=== PATIENT | male | born 1985 | race Caucasian/White ===

== ENCOUNTER 2017-02-24 08:48 | Emergency (ER) | payer BC ==
[2017-02-24 09:05] VITALS: BP 122/78
--- NOTE | 2017-02-24 09:19 | EDM.PDOC ---
ED HPI GENERAL MEDICAL PROBLEM - General Chief Complaint: ENT Problem Stated Complaint: SINUS INFECTION Time Seen by Provider: 02/24/17 09:06 - History of Present Illness INITIAL COMMENTS - FREE TEXT/NARRATIVE: HISTORY AND PHYSICAL: History of present illness: The patient is a 31-year-old male with a history of non-Hodgkin's lymphoma which has been in remission since 2000 and thyroid cancer which is been in remission since 2013, both of which he has maintenance treatment at the [facility], and who presents with complaints of 4 days of sinus pressure sinus drainage of yellow and green mucous, postnasal drip scratchy sore throat and in her ear pressure/pain. He also describes a frontal headache with this. His highest fever has been 101 at home day or so ago and Tylenol treated that problem. He has had no chest pain shortness of breath but has had occasional dry cough. He has no nausea vomiting or diarrhea. Patient has no swollen glands in his neck no neck pain and no posterior head pain. Review of systems: As per history of present illness and below otherwise all systems reviewed and negative. Past medical history: As per history of present illness and as reviewed below otherwise noncontributory. Surgical history: As per history of present illness and as reviewed below otherwise noncontributory. Social history: No reported history of drug or alcohol abuse. Family history: As per history of present illness and as reviewed below otherwise noncontributory. Physical exam: General: Well-developed well-nourished man who is nasal quality to voice but is nontoxic appearing. Vital signs of the noted by me HEENT: Atraumatic, normocephalic, pupils reactive, negative for conjunctival pallor or scleral icterus, mucous membranes moist, throat clear, neck supple, nontender, trachea midline. There is no inflamed cervical adenopathy or nuchal rigidity, there is some mild maxillary sinus tenderness on palpation, TMs are normal bilaterally, nasal turbinates are slightly boggy close it is slightly clear dictated left greater than right. There is some shoddy old cervical nodes appreciated with patient states is not new Lungs: Clear to auscultation, breath sounds equal bilaterally, chest nontender. Heart: S1S2, regular, negative for clicks, rubs, or JVD. Abdomen: Soft, nondistended, nontender. NABS Genitourinary: Deferred. Rectal: Deferred. Extremities: Atraumatic, negative for cords or calf pain. Neurovascular unremarkable. Neuro: Awake, alert, oriented. Cranial nerves II through XII unremarkable. Cerebellum unremarkable. Motor and sensory unremarkable throughout. Exam nonfocal. Diagnostics: [] Therapeutics: [] I offered the patient labs and an x-ray in light of his distant cancer history but I explained to him that I felt comfortable just treating the sinusitis but wanted to be sensitive to his history and his potential concerns. He states he would just like treatment for the sinusitis and will followup as needed. Impression: Sinusitis Definitive disposition and diagnosis as appropriate pending reevaluation and review of above. Sinus/Headache Pain Score (Numeric/FACES): 6 - Related Data Allergies Allergy/AdvReac Type Severity Reaction Status Date / Time latex Allergy Rash Verified 02/24/17 09:05 Penicillins Allergy Hives Verified 02/24/17 09:05 Home Meds: Home Meds Levothyroxine Sodium [Synthroid] 175 mcg PO DAILY 08/17/15 [History] Past Medical History HEENT History: Reports: None Cardiovascular History: Reports: None Respiratory History: Reports: None Gastrointestinal History: Reports: None Genitourinary History: Reports: None Musculoskeletal History: Reports: None Neurological History: Reports: None Psychiatric History: Reports: None Endocrine/Metabolic History: Reports: Other (see below) Other Endocrine/Metabolic History: Thyroid cancer Hematologic History: Reports: None Immunologic History: Reports: None Oncologic (Cancer) History: Reports: Non-Hodgkin's Lymphoma, Thyroid Dermatologic History: Reports: Other (see below) Other Dermatologic History: hx of I&D of rt ankle wound - Infectious Disease History Infectious Disease History: Reports: None - Past Surgical History Head Surgeries/Procedures: Reports: None HEENT Surgical History: Reports: None Cardiovascular Surgical History: Reports: None Respiratory Surgical History: Reports: None GI Surgical History: Reports: None Male Surgical History: Reports: None Endocrine Surgical History: Reports: Thyroidectomy Neurological Surgical History: Reports: Thoracic spine Musculoskeletal Surgical History: Reports: Other (see below) Other Musculoskeletal Surgeries/Procedures:: T5 vertebral removal Oncologic Surgical History: Reports: None Social & Family History - Family History Family Medical History: Noncontributory - Tobacco Use Smoking Status *Q: Never Smoker Used Tobacco, but Quit: No Second Hand Smoke Exposure: No - Caffeine Use Caffeine Use: Reports: None - Recreational Drug Use Recreational Drug Use: No Drug Use in Last 12 Months: No ED ROS GENERAL - Review of Systems Review Of Systems: ROS reveals no pertinent complaints other than HPI. ED EXAM, GENERAL - Physical Exam Exam: See Below (see dictation) Course - Vital Signs Last Recorded V/S: Last Vital Signs Temp 37.4 C 02/24/17 09:02 Pulse 98 02/24/17 09:02 Resp 16 02/24/17 09:02 BP 122/78 02/24/17 09:02 Pulse Ox 96 02/24/17 09:02 Departure - Departure Time of Disposition: :18 Disposition: Home, Self-Care 01 Condition: good Clinical Impression: Sinusitis Qualifiers: Sinusitis location: unspecified location Chronicity: acute Recurrence: non- recurrent Qualified Code(s): J01.90 - Acute sinusitis, unspecified Forms: ED Department Discharge Additional Instructions: The following information is given to patients seen in the emergency department who are being discharged to home. This information is to outline your options for follow-up care. We provide all patients seen in our emergency department with a follow-up referral. The need for follow-up, as well as the timing and circumstances, are variable depending upon the specifics of your emergency department visit. If you don't have a primary care physician on staff, we will provide you with a referral. We always advise you to contact your personal physician following an emergency department visit to inform them of the circumstance of the visit and for follow-up with them and/or the need for any referrals to a consulting specialist. The emergency department will also refer you to a specialist when appropriate. This referral assures that you have the opportunity for followup care with a specialist. All of these measure are taken in an effort to provide you with optimal care, which includes your followup. Under all circumstances we always encourage you to contact your private physician who remains a resource for coordinating your care. When calling for followup care, please make the office aware that this follow-up is from your recent emergency room visit. If for any reason you are refused follow-up, please contact the [facility] emergency department at and ask to speak to the emergency department charge nurse. [facility]- Internal Medicine and Family [place] [phone] Please use [id number] Claritin or Benadryl to dry her sinuses, use Tylenol or ibuprofen for any fevers and push hydration. Please take antibiotics as directed until they're finished. Please return to ER as needed and as discussed. Use [id number] nasal spray as you choose. Please call and make a followup appointment in our clinic next week
== END 2017-02-24 09:18 | disposition home or self-care (01) ==
LOC: MW.ED 08:48
DX: J01.90 Acute sinusitis, unspecified (principal); Z85.72 Personal history of non-Hodgkin lymphomas; Z88.0 Allergy status to penicillin; Z91.040 Latex allergy status; Z79.899 Other long term (current) drug therapy; Z98.890 Other specified postprocedural states
CPT/HCPCS: 99282; 99283